=== PATIENT | male | born 1995 | race Caucasian/White ===

== ENCOUNTER 2020-12-05 10:16 | Inpatient (IN) | payer BC, OTHER, SELFPAY ==
[2020-12-05] MEDS ORDERED: Norepinephrine 8 MG/0.9% NS 250 ML ONE (10:20)
[2020-12-05] MEDS ORDERED: Lidocaine 1% (PF) 30 ML VIAL ONE (10:29)
[2020-12-05] MEDS ORDERED: EPINEPHrine 1 MG/10 ML Abboject SYRINGE ONE (10:34)
[2020-12-05] MEDS ORDERED: Iopamidol 370 76% 100 ML VIAL ONE (10:46)
[2020-12-05 10:51] LABS: Bacteria/HPF None Seen HPF (None Seen); Bilirubin Negative (Negative); Blood, Urine Negative (Negative); Clarity Clear (Clear); Glucose, Urine (Dipstick) Normal (Negative); Ketone, Urine Negative (Negative); Leukocyte Negative Leu/uL (Negative); Nitrite Negative (Negative); Protein, Urine (Dipstick) 70 mg/dL (Neg-Trace); RBC/HPF 0-3 HPF (0-3); Specific Gravity, Urine 1.035 (1.002-1.036); Squamous Epithelial None Seen HPF (0-3); Urobilinogen Normal mg/dL (Less than 2); WBC/HPF 0-3 HPF (0-3); pH, Urine 6.5 (5.0-9.0)
[2020-12-05] MEDS ORDERED: Fentanyl 100 MCG/2 ML VIAL ONE (10:54)
[2020-12-05 10:57] LABS: INR-International Normal Ratio 1.1; PTT 26.1 sec (22.9-36.1); Prothrombin Time 13.8 sec (12.0-14.7)
[2020-12-05 10:59] LABS: Amphetamine Not Detected (NotDetected); Barbiturates Screen Detected (NotDetected); Benzodiazepine Screen Not Detected (NotDetected); Cocaine Metabolite Screen Not Detected (NotDetected); Medtox Control Line Valid? VALID (VALID); Medtox Reader # READER 1; Methadone Not Detected (NotDetected); Methamphetamine Not Detected (NotDetected); Opiate Screen Not Detected (NotDetected); Oxycodone Screen Not Detected (NotDetected); Phencyclidine (PCP) Not Detected (NotDetected); THC/Cannabinoid Screen Detected (NotDetected); Tricyclic Screen Not Detected (NotDetected)
[2020-12-05 11:06] LABS: Hemoglobin 16.4 g/dL (14.0-18.0); Mean Corpuscular Hemoglobin 32.1 pg (27.0-31.0); Mean Platelet Volume 7.3 fL (7.4-10.4); Platelet Count 225 thou/uL (130-400); RBC Distribution Width 12.6 % (11.5-14.5)
[2020-12-05 11:08] LABS: Anion Gap 25 mmol/L (10-20); BUN (Urea Nitrogen) 15 mg/dL (8.9-20.6); Calc. Creatinine Clearance 0 mL/min (70-130); Carbon Dioxide 13 mmol/L (22-29); Chloride 102 mmol/L (98-107); Potassium 3.4 mmol/L (3.5-5.1); Sodium 137 mmol/L (136-145)
[2020-12-05 11:09] LABS: ALT (SGPT) 79 U/L (8-55); AST (SGOT) 94 U/L (5-34); Albumin 4.2 g/dL (3.5-5.0); Alkaline Phosphatase 78 U/L (40-110); Bilirubin, Total 1.2 mg/dL (0.2-1.2); Calcium 8.7 mg/dL (7.8-10.44); Globulin 3.1 g/dL (2.4-3.5); Glucose 235 mg/dL (70-105); Lipase 24 U/L (8-78); Protein, Total 7.3 g/dL (6.0-8.3)
[2020-12-05 11:12] LABS: Acetaminophen Less than 6.0 mcg/mL (10.0-30.0); Alcohol Less than 10 mg/dL (Less than 10); CK (CPK) 97 U/L (30-200); Salicylate Less than 8.0 mg/dL (15.0-30.0)
[2020-12-05 11:39] LABS: SARS-CoV-2 NAA Rapid Test Not Detected (NotDetected)
[2020-12-05] MEDS ORDERED: Amiodarone 150 MG/3 ML VIAL ONE (11:45)
[2020-12-05] MEDS ORDERED: Fentanyl CADD 100 ML ONE (11:55)
[2020-12-05 12:06] LABS: Band 1 % (5-11); Eosinophils 2 % (0-10); Lymphocytes 59 % (21-51); MDiff Complete? YES; Monocytes 1 % (0-10); Neutrophil 3 % (42-75); Platelet Morphology Comment Appears Adequate; Polychromasia SLIGHT = 2-3 cells (100X) (0-2/hpf); Reactive Lymphocytes 32 % (0-10)
[2020-12-05] MEDS ORDERED: Midazolam HCl 2 mg/2 ml Vial ONE (12:08)
[2020-12-05 12:31] LABS: Actual Bicarbonate (HCO3a) 12.5 mEq/L (22-28); Base Excess (BEa) -15.5 mEq/L (-2.0 to +3.0); CO2 Tension 36.8 mmHg (35.0-45.0); Calcium, Ionized (arterial) 1.05 mmol/L (1.12-1.30); Carboxyhemoglobin (COHb) 0.3 gm% (0.0-3.0); Hemoglobin (Hb) 15.4 g/dL (14.0-18.0); O2 Tension (PaO2), arterial 107.9 mmHg (80.0-100.0)
[2020-12-05 12:35] LABS: Puncture Site Arterial Line; pH, Arterial 7.15 (7.35-7.45)
[2020-12-05] MEDS ORDERED: Propofol 1,000 MG/100 ML VIAL IV ONE (12:35)
[2020-12-05] MEDS ORDERED: Nitroglycerin 0.4 MG TAB (25 Tab Bottle) SL PRN (13:07)
[2020-12-05] MEDS ORDERED: Lorazepam 2 MG/ML VIAL ONE (13:31)
[2020-12-05] MEDS ORDERED: Fentanyl BOLUS 250 ML IVPB PRN (13:45)
[2020-12-05] MEDS ORDERED: Propofol BOLUS 1,000 MG/100 ML VIAL IV PRN (13:45)
[2020-12-05] MEDS ORDERED: Lorazepam 2 MG/ML VIAL SLOW IVP SCH (13:45)
[2020-12-05] MEDS ORDERED: DISCONTINUE PREVIOUS NARCOTIC PAIN MEDICATIONS AND BENZODIAZEPINES FS SCH (13:45)
[2020-12-05] MEDS ORDERED: Morphine 2 MG/ML VIAL SLOW IVP PRN (13:45)
[2020-12-05 14:07] LABS: Lactic Acid 4.1 mmol/L (0.5-2.2)
[2020-12-05 14:28] LABS: Actual Bicarbonate (HCO3a) 17.8 mEq/L (22-28); Base Excess (BEa) -4.1 mEq/L (-2.0 to +3.0); Calcium, Ionized (arterial) 1.03 mmol/L (1.12-1.30); Carboxyhemoglobin (COHb) 0.2 gm% (0.0-3.0); Hemoglobin (Hb) 15.7 g/dL (14.0-18.0); O2 Tension (PaO2), arterial 168.4 mmHg (80.0-100.0); Potassium - ABG Lab 4.35 mmol/L (3.70-5.30); pH, Arterial 7.46 (7.35-7.45)
[2020-12-05 14:29] LABS: ALV-art Gradient 80.925 mmHg (0-20); CO2 Tension 25.5 mmHg (35.0-45.0); Puncture Site Arterial Line
[2020-12-05] MEDS: Heparin 5,000 UNITS/ML VIAL SC SCH ×2 (15:48→20:13)
[2020-12-05] MEDS: Lorazepam 2 MG/ML VIAL SLOW IVP PRN ×3 (15:48→22:22)
[2020-12-05] MEDS: Sodium Chloride 0.9% 1,000 ML IV SCH (15:49)
[2020-12-05] MEDS: Amiodarone 450 MG in Dextrose 5% in Water 250 ML IVPB SCH (15:55)
[2020-12-05] MEDS ORDERED: Potassium Chloride 40 MEQ in Premix Bag 1 BAG IVPB SCH (16:30)
[2020-12-05] MEDS ORDERED: Electrolyte Replacement Protocol FS PRN (16:30)
[2020-12-05] MEDS ORDERED: Calcium Gluconate 4.6 MEQ in Sodium Chloride 0.9% 100 ML IVPB SCH (16:45)
[2020-12-05] MEDS: DOBUTamine 500 mg/250 ml 500 MG in Premix Bag 1 BAG IVPB SCH (16:48)
[2020-12-05] MEDS: Norepinephrine 8 MG/0.9% NS 250 ML IVPB SCH (17:14)
[2020-12-05] MEDS: Vecuronium 10 MG VIAL IVP PRN ×3 (17:20→22:45)
[2020-12-05 19:38] LABS: #Lymphocytes 1.7 thou/uL (1.20-3.40); #Neutrophils 12.5 thou/uL (1.40-6.50); %Basophils 0.3 % (0.0-1.0); %Eosinophils 0.1 % (0.0-10.0); %Lymphocytes 10.8 % (21.0-51.0); %Monocytes 6.8 % (0.0-10.0); Hemoglobin 15.5 g/dL (14.0-18.0); Mean Corpuscular HGB CONC 34.2 g/dL (32.0-36.0); Mean Corpuscular Volume 96.5 fL (78.0-98.0); Mean Platelet Volume 6.8 fL (7.4-10.4); Platelet Count 203 thou/uL (130-400); RBC Distribution Width 12.8 % (11.5-14.5); White Blood Cell (WBC) Count 15.3 thou/uL (4.8-10.8)
[2020-12-05 19:45] LABS: INR-International Normal Ratio 1.1; PTT 25.2 sec (22.9-36.1); Prothrombin Time 14.6 sec (12.0-14.7)
[2020-12-05 19:54] LABS: Anion Gap 14 mmol/L (10-20); BUN (Urea Nitrogen) 14 mg/dL (8.9-20.6); Calc. Creatinine Clearance 175 mL/min (70-130); Calcium 8.4 mg/dL (7.8-10.44); Carbon Dioxide 16 mmol/L (22-29); Chloride 110 mmol/L (98-107); Glucose 104 mg/dL (70-105); Magnesium 1.9 mg/dL (1.6-2.6); Potassium 4.4 mmol/L (3.5-5.1); Sodium 136 mmol/L (136-145)
[2020-12-05 20:06] LABS: Troponin I 1.296 ng/mL (< 0.028)
[2020-12-05] MEDS ORDERED: Magnesium 2 GM/50 ML 2 GM in Premix Bag 1 BAG IVPB SCH (20:30)
[2020-12-05] MEDS: Propofol 1,000 MG/100 ML VIAL IV PRN (22:25)
[2020-12-06] MEDS: Vecuronium 10 MG VIAL IVP PRN ×5 (01:37→23:50)
[2020-12-06 01:57] LABS: #Basophils 0.1 thou/uL (0.0-0.2); #Lymphocytes 2.4 thou/uL (1.20-3.40); #Monocytes 0.9 thou/uL (0.11-0.59); %Basophils 0.5 % (0.0-1.0); %Eosinophils 0.1 % (0.0-10.0); %Lymphocytes 19.2 % (21.0-51.0); %Monocytes 7.4 % (0.0-10.0); %Neutrophils 72.7 % (42.0-75.0); Hemoglobin 15.3 g/dL (14.0-18.0); Mean Corpuscular HGB CONC 34.3 g/dL (32.0-36.0); Mean Corpuscular Hemoglobin 33.4 pg (27.0-31.0); Mean Corpuscular Volume 97.5 fL (78.0-98.0); Mean Platelet Volume 6.7 fL (7.4-10.4); Platelet Count 201 thou/uL (130-400); RBC Distribution Width 12.7 % (11.5-14.5); Red Blood Cell (RBC) Count 4.57 mill/uL (4.70-6.10); White Blood Cell (WBC) Count 12.4 thou/uL (4.8-10.8)
[2020-12-06 02:18] LABS: Anion Gap 15 mmol/L (10-20); BUN (Urea Nitrogen) 12 mg/dL (8.9-20.6); Calc. Creatinine Clearance 192 mL/min (70-130); Calcium 8.3 mg/dL (7.8-10.44); Carbon Dioxide 18 mmol/L (22-29); Chloride 107 mmol/L (98-107); Glucose 105 mg/dL (70-105); Magnesium 2.1 mg/dL (1.6-2.6); Phosphorus 2.9 mg/dL (2.3-4.7); Potassium 3.9 mmol/L (3.5-5.1); Sodium 136 mmol/L (136-145)
[2020-12-06 02:20] LABS: INR-International Normal Ratio 1.1; Prothrombin Time 13.9 sec (12.0-14.7)
[2020-12-06 02:37] LABS: Troponin I 0.642 ng/mL (< 0.028)
[2020-12-06] MEDS ORDERED: Fentanyl CADD 100 ML ONE ×2 (02:49→22:47)
[2020-12-06] MEDS: Fentanyl CADD 100 ML IV SCH ×2 (02:54→22:51)
[2020-12-06] MEDS: Propofol 1,000 MG/100 ML VIAL IV PRN ×4 (02:55→21:16)
[2020-12-06 03:51] LABS: #Lymphocytes 2.3 thou/uL (1.20-3.40); #Monocytes 0.5 thou/uL (0.11-0.59); #Neutrophils 7.3 thou/uL (1.40-6.50); %Basophils 0.3 % (0.0-1.0); %Eosinophils 0.4 % (0.0-10.0); %Lymphocytes 22.8 % (21.0-51.0); %Monocytes 4.7 % (0.0-10.0); %Neutrophils 71.8 % (42.0-75.0); Hemoglobin 15.1 g/dL (14.0-18.0); Mean Corpuscular Volume 97.1 fL (78.0-98.0); Mean Platelet Volume 6.8 fL (7.4-10.4); Platelet Count 186 thou/uL (130-400); RBC Distribution Width 12.7 % (11.5-14.5); Red Blood Cell (RBC) Count 4.45 mill/uL (4.70-6.10); White Blood Cell (WBC) Count 10.1 thou/uL (4.8-10.8)
[2020-12-06 04:05] LABS: Lactic Acid 1.5 mmol/L (0.5-2.2)
[2020-12-06 04:10] LABS: ALT (SGPT) 66 U/L (8-55); AST (SGOT) 81 U/L (5-34); Albumin 3.7 g/dL (3.5-5.0); Alkaline Phosphatase 63 U/L (40-110); Anion Gap 15 mmol/L (10-20); BUN (Urea Nitrogen) 12 mg/dL (8.9-20.6); Bilirubin, Total 1.9 mg/dL (0.2-1.2); Calc. Creatinine Clearance 201 mL/min (70-130); Calcium 8.4 mg/dL (7.8-10.44); Carbon Dioxide 18 mmol/L (22-29); Cardiac Risk 2.7 (Less than 4.5); Chloride 107 mmol/L (98-107); Cholesterol 123 mg/dl (< 200 Desired); Globulin 2.5 g/dL (2.4-3.5); Glucose 110 mg/dL (70-105); HDL Cholesterol 45 mg/dL (>60 Neg Risk); LDL Cholesterol, Calculated 58 mg/dL; Magnesium 2.1 mg/dL (1.6-2.6); Potassium 3.9 mmol/L (3.5-5.1); Protein, Total 6.2 g/dL (6.0-8.3); Sodium 136 mmol/L (136-145); Triglycerides 99 mg/dL (Less than 150)
[2020-12-06] MEDS: Amiodarone 450 MG in Dextrose 5% in Water 250 ML IVPB SCH ×2 (04:46→20:00)
[2020-12-06] MEDS: Lorazepam 2 MG/ML VIAL SLOW IVP PRN ×2 (05:19→21:35)
[2020-12-06 07:01] LABS: Actual Bicarbonate (HCO3a) 17.2 mEq/L (22-28); Base Excess (BEa) -4.8 mEq/L (-2.0 to +3.0); Carboxyhemoglobin (COHb) 0.6 gm% (0.0-3.0); Hemoglobin (Hb) 15.3 g/dL (14.0-18.0); O2 Tension (PaO2), arterial 61.3 mmHg (80.0-100.0); pH, Arterial 7.45 (7.35-7.45)
[2020-12-06 07:03] LABS: CO2 Tension 25.2 mmHg (35.0-45.0)
[2020-12-06 07:04] LABS: Puncture Site Arterial Line
[2020-12-06] MEDS: Sodium Chloride 0.9% 1,000 ML IV SCH (07:50)
[2020-12-06 07:52] LABS: #Basophils 0.1 thou/uL (0.0-0.2); #Lymphocytes 1.4 thou/uL (1.20-3.40); #Monocytes 0.3 thou/uL (0.11-0.59); #Neutrophils 7.6 thou/uL (1.40-6.50); %Basophils 0.7 % (0.0-1.0); %Eosinophils 0.3 % (0.0-10.0); %Lymphocytes 15.2 % (21.0-51.0); %Monocytes 2.9 % (0.0-10.0); %Neutrophils 80.9 % (42.0-75.0); Hemoglobin 15.2 g/dL (14.0-18.0); Mean Corpuscular HGB CONC 32.8 g/dL (32.0-36.0); Mean Corpuscular Hemoglobin 32.5 pg (27.0-31.0); Mean Platelet Volume 6.8 fL (7.4-10.4); Platelet Count 188 thou/uL (130-400); RBC Distribution Width 12.8 % (11.5-14.5); Red Blood Cell (RBC) Count 4.66 mill/uL (4.70-6.10); White Blood Cell (WBC) Count 9.5 thou/uL (4.8-10.8)
[2020-12-06] MEDS: Potassium Phosphate 15 MMOL in Sodium Chloride 0.9% 100 ML IVPB SCH ×2 (08:09→08:57)
[2020-12-06 08:16] LABS: Anion Gap 14 mmol/L (10-20); BUN (Urea Nitrogen) 11 mg/dL (8.9-20.6); Calc. Creatinine Clearance 197 mL/min (70-130); Calcium 8.4 mg/dL (7.8-10.44); Carbon Dioxide 18 mmol/L (22-29); Chloride 109 mmol/L (98-107); Glucose 108 mg/dL (70-105); Magnesium 1.8 mg/dL (1.6-2.6); Phosphorus 2.1 mg/dL (2.3-4.7); Potassium 3.5 mmol/L (3.5-5.1); Sodium 137 mmol/L (136-145)
[2020-12-06 08:22] LABS: Critical Call Chem Troponin I RESULT DECREASING; Troponin I 0.307 ng/mL (< 0.028)
[2020-12-06 08:30] LABS: INR-International Normal Ratio 1.1; PTT 28.7 sec (22.9-36.1); Prothrombin Time 14.3 sec (12.0-14.7)
[2020-12-06] MEDS ORDERED: Magnesium 2 GM/50 ML 2 GM in Premix Bag 1 BAG IVPB SCH ×2 (08:45→20:45)
[2020-12-06] MEDS: Heparin 5,000 UNITS/ML VIAL SC SCH ×3 (08:57→20:39)
[2020-12-06] MEDS: Pantoprazole 40 MG VIAL IVP SCH (09:16)
[2020-12-06] MEDS: Potassium Chloride 20 MEQ in Premix Bag 1 BAG IVPB SCH ×2 (09:51→12:06)
[2020-12-06] MEDS ORDERED: Sodium Bicarb 50 MEQ/50 ML Abboject 8.4% SYRINGE IVP SCH (10:00)
[2020-12-06] MEDS ORDERED: Albuterol Sulfate 1.25 MG/3 ML NEB NEB PRN (11:34)
[2020-12-06 11:43] LABS: Actual Bicarbonate (HCO3a) 18.7 mEq/L (22-28); Analyzer IN Cardio ER; Base Excess (BEa) -5.9 mEq/L (-2.0 to +3.0); CO2 Tension 34.7 mmHg (35.0-45.0); Calcium, Ionized (arterial) 1.17 mmol/L (1.12-1.30); Carboxyhemoglobin (COHb) 0.3 gm% (0.0-3.0); Hemoglobin (Hb) 16.5 g/dL (14.0-18.0); O2 Tension (PaO2), arterial 45.8 mmHg (80.0-100.0); Potassium - ABG Lab 3.27 mmol/L (3.70-5.30); pH, Arterial 7.35 (7.35-7.45)
[2020-12-06 11:45] LABS: Puncture Site Arterial Line
[2020-12-06 11:46] LABS: ALV-art Gradient 338.625 mmHg (0-20)
[2020-12-06] MEDS ORDERED: Furosemide 20 MG/2 ML VIAL SLOW IVP SCH (12:00)
[2020-12-06 13:02] LABS: Hemoglobin 15.9 g/dL (14.0-18.0); INR-International Normal Ratio 1.1; Mean Corpuscular HGB CONC 33.3 g/dL (32.0-36.0); Mean Corpuscular Hemoglobin 32.7 pg (27.0-31.0); Mean Corpuscular Volume 98.1 fL (78.0-98.0); Mean Platelet Volume 7.2 fL (7.4-10.4); PTT 28.7 sec (22.9-36.1); Platelet Count 180 thou/uL (130-400); Prothrombin Time 14.1 sec (12.0-14.7); RBC Distribution Width 13.1 % (11.5-14.5); Red Blood Cell (RBC) Count 4.86 mill/uL (4.70-6.10); White Blood Cell (WBC) Count 6.8 thou/uL (4.8-10.8)
[2020-12-06 13:36] LABS: Anion Gap 16 mmol/L (10-20); BUN (Urea Nitrogen) 10 mg/dL (8.9-20.6); Calc. Creatinine Clearance 210 mL/min (70-130); Calcium 8.8 mg/dL (7.8-10.44); Carbon Dioxide 18 mmol/L (22-29); Chloride 108 mmol/L (98-107); Glucose 127 mg/dL (70-105); Magnesium 2.3 mg/dL (1.6-2.6); Phosphorus 1.4 mg/dL (2.3-4.7); Potassium 3.7 mmol/L (3.5-5.1); Sodium 138 mmol/L (136-145)
[2020-12-06 13:44] LABS: Band 18 % (5-11); Lymphocytes 12 % (21-51); MDiff Complete? YES; Metamyelocyte 4 % (0-0); Monocytes 3 % (0-10); Neutrophil 63 % (42-75); Platelet Morphology Comment Appears Adequate; RBC Morphology Normal
[2020-12-06] MEDS ORDERED: Potassium Phosphate 30 MMOL in Sodium Chloride 0.9% 250 ML 250 ML IVPB SCH (13:45)
[2020-12-06] MEDS: DOBUTamine 500 mg/250 ml 500 MG in Premix Bag 1 BAG IVPB SCH (14:26)
[2020-12-06 14:50] VITALS: BMI 31.4
[2020-12-06 19:02] LABS: Hemoglobin 15.8 g/dL (14.0-18.0); Mean Corpuscular HGB CONC 33.4 g/dL (32.0-36.0); Mean Corpuscular Hemoglobin 33.1 pg (27.0-31.0); Mean Corpuscular Volume 99.2 fL (78.0-98.0); Mean Platelet Volume 7.1 fL (7.4-10.4); Platelet Count 195 thou/uL (130-400); RBC Distribution Width 13.1 % (11.5-14.5); Red Blood Cell (RBC) Count 4.77 mill/uL (4.70-6.10); White Blood Cell (WBC) Count 8.6 thou/uL (4.8-10.8)
[2020-12-06 19:08] LABS: INR-International Normal Ratio 1.2; PTT 28.9 sec (22.9-36.1); Prothrombin Time 14.9 sec (12.0-14.7)
[2020-12-06 19:19] LABS: Anion Gap 16 mmol/L (10-20); BUN (Urea Nitrogen) 11 mg/dL (8.9-20.6); Calc. Creatinine Clearance 176 mL/min (70-130); Calcium 8.5 mg/dL (7.8-10.44); Carbon Dioxide 19 mmol/L (22-29); Chloride 106 mmol/L (98-107); Glucose 144 mg/dL (70-105); Magnesium 1.8 mg/dL (1.6-2.6); Phosphorus 2.9 mg/dL (2.3-4.7); Potassium 3.7 mmol/L (3.5-5.1); Sodium 137 mmol/L (136-145)
[2020-12-06 19:21] LABS: Band 21 % (5-11); Lymphocytes 8 % (21-51); MDiff Complete? YES; Metamyelocyte 1 % (0-0); Monocytes 9 % (0-10); Neutrophil 60 % (42-75); Platelet Morphology Comment Appears Adequate; RBC Morphology Normal; Reactive Lymphocytes 1 % (0-10)
[2020-12-06 19:25] LABS: Troponin I 0.079 ng/mL (< 0.028)
[2020-12-06 20:45] LABS: Actual Bicarbonate (HCO3a) 18.8 mEq/L (22-28); Base Excess (BEa) -8.7 mEq/L (-2.0 to +3.0); Calcium, Ionized (arterial) 1.18 mmol/L (1.12-1.30); Carboxyhemoglobin (COHb) 0.3 gm% (0.0-3.0); Hemoglobin (Hb) 16.4 g/dL (14.0-18.0); Potassium - ABG Lab 4.26 mmol/L (3.70-5.30)
[2020-12-06] MEDS ORDERED: Potassium Chloride 40 MEQ in Premix Bag 1 BAG IVPB SCH (20:45)
[2020-12-06] MEDS ORDERED: Albumin 25% 25 GM/100 ML BOT IVPB SCH (20:45)
[2020-12-06 20:48] LABS: pH, Arterial 7.23 (7.35-7.45)
[2020-12-06 20:49] LABS: Puncture Site Arterial Line
[2020-12-07] MEDS ORDERED: Furosemide 40 MG/4 ML VIAL SLOW IVP SCH (01:30)
[2020-12-07] MEDS: Propofol 1,000 MG/100 ML VIAL IV PRN ×2 (02:36→07:27)
[2020-12-07] MEDS: Norepinephrine 8 MG/0.9% NS 250 ML IVPB SCH ×3 (02:59→13:03)
[2020-12-07] MEDS: Acetaminophen 650 MG/20.3 ML UDCUP PER TUBE PRN ×2 (04:16→12:14)
[2020-12-07 05:21] LABS: Phosphorus 4.7 mg/dL (2.3-4.7)
[2020-12-07 05:45] LABS: ALT (SGPT) 50 U/L (8-55); AST (SGOT) 55 U/L (5-34); Albumin 3.8 g/dL (3.5-5.0); Alkaline Phosphatase 58 U/L (40-110); Anion Gap 17 mmol/L (10-20); BUN (Urea Nitrogen) 15 mg/dL (8.9-20.6); Bilirubin, Total 2.8 mg/dL (0.2-1.2); Calc. Creatinine Clearance 127 mL/min (70-130); Calcium 8.5 mg/dL (7.8-10.44); Carbon Dioxide 16 mmol/L (22-29); Chloride 108 mmol/L (98-107); Globulin 2.5 g/dL (2.4-3.5); Glucose 104 mg/dL (70-105); Potassium 6.3 mmol/L (3.5-5.1); Protein, Total 6.3 g/dL (6.0-8.3); Sodium 135 mmol/L (136-145)
[2020-12-07] MEDS ORDERED: Calcium Gluc 4.6 MEQ/10 ML (100 MG/ML) SLOW IVP SCH (06:15)
[2020-12-07 06:24] LABS: Anion Gap 17 mmol/L (10-20); BUN (Urea Nitrogen) 16 mg/dL (8.9-20.6); Calc. Creatinine Clearance 108 mL/min (70-130); Calcium 8.1 mg/dL (7.8-10.44); Carbon Dioxide 16 mmol/L (22-29); Chloride 108 mmol/L (98-107); Glucose 104 mg/dL (70-105); Sodium 134 mmol/L (136-145)
[2020-12-07 06:30] LABS: Potassium 6.7 mmol/L (3.5-5.1)
[2020-12-07] MEDS ORDERED: Magnesium 2 GM/50 ML 2 GM in Premix Bag 1 BAG IVPB SCH (06:30)
[2020-12-07] MEDS ORDERED: Insulin Regular 300 UNITS/3 ML VIAL IVP SCH (06:45)
[2020-12-07] MEDS ORDERED: Dextrose 50% Abboject 50 ML SYRINGE SLOW IVP SCH (06:45)
[2020-12-07] MEDS: Vecuronium 10 MG VIAL IVP PRN (07:27)
[2020-12-07 07:33] LABS: Actual Bicarbonate (HCO3a) 17.2 mEq/L (22-28); Base Excess (BEa) -8.9 mEq/L (-2.0 to +3.0); CO2 Tension 37.9 mmHg (35.0-45.0); Calcium, Ionized (arterial) 1.14 mmol/L (1.12-1.30); Carboxyhemoglobin (COHb) 0.4 gm% (0.0-3.0); Hemoglobin (Hb) 14.7 g/dL (14.0-18.0); O2 Tension (PaO2), arterial 67.4 mmHg (80.0-100.0); Potassium - ABG Lab 5.36 mmol/L (3.70-5.30); pH, Arterial 7.27 (7.35-7.45)
[2020-12-07 07:34] LABS: ALV-art Gradient 384.325 mmHg (0-20); Puncture Site Arterial Line
[2020-12-07] MEDS: Sodium Bicarbonate 150 MEQ in Dextrose 5% in Water 1,000 ML IV SCH ×2 (07:59→08:30)
[2020-12-07] MEDS: Vasopressin 20 UNIT, Admixture Fee 1 EACH in Sodium Chloride 0.9% 50 ML IV SCH ×2 (07:59→14:05)
[2020-12-07] MEDS ORDERED: Sodium Bicarbonate 150 MEQ in Dextrose 5% in Water 1,000 ML IV SCH (09:00)
[2020-12-07] MEDS: Pantoprazole 40 MG VIAL IVP SCH (09:57)
[2020-12-07] MEDS: Heparin 5,000 UNITS/ML VIAL SC SCH (09:57)
[2020-12-07 10:06] LABS: Hemoglobin 14.8 g/dL (14.0-18.0); Mean Corpuscular HGB CONC 32.2 g/dL (32.0-36.0); Mean Corpuscular Hemoglobin 32.2 pg (27.0-31.0); Mean Platelet Volume 7.2 fL (7.4-10.4); Platelet Count 186 thou/uL (130-400); RBC Distribution Width 13.1 % (11.5-14.5); Red Blood Cell (RBC) Count 4.58 mill/uL (4.70-6.10); White Blood Cell (WBC) Count 3.6 thou/uL (4.8-10.8)
[2020-12-07] MEDS: DOBUTamine 500 mg/250 ml 500 MG in Premix Bag 1 BAG IVPB SCH ×2 (10:12→14:05)
[2020-12-07 10:22] LABS: Lactic Acid 3.8 mmol/L (0.5-2.2)
[2020-12-07 11:17] LABS: Band 60 % (5-11); Lymphocytes 11 % (21-51); MDiff Complete? YES; Metamyelocyte 11 % (0-0); Monocytes 2 % (0-10); Neutrophil 16 % (42-75); Platelet Morphology Comment Appears Adequate; Polychromasia SLIGHT = 2-3 cells (100X) (0-2/hpf); Vacuoles SLIGHT
[2020-12-07] MEDS: Amiodarone 450 MG in Dextrose 5% in Water 250 ML IVPB SCH (11:24)
[2020-12-07] MEDS ORDERED: Albumin 25% 25 GM/100 ML BOT IVPB SCH (11:45)
[2020-12-07 12:29] LABS: Anion Gap 15 mmol/L (10-20); BUN (Urea Nitrogen) 16 mg/dL (8.9-20.6); Calc. Creatinine Clearance 114 mL/min (70-130); Calcium 8.2 mg/dL (7.8-10.44); Carbon Dioxide 21 mmol/L (22-29); Chloride 105 mmol/L (98-107); Glucose 137 mg/dL (70-105); Potassium 5.9 mmol/L (3.5-5.1); Sodium 135 mmol/L (136-145)
[2020-12-07] MEDS ORDERED: Calcium Gluconate 4.6 MEQ in Sodium Chloride 0.9% 100 ML IVPB SCH (12:44)
[2020-12-07] MEDS ORDERED: Vecuronium 10 MG VIAL IV PRN (12:54)
[2020-12-07 14:37] VITALS: BP 115/60
[2020-12-07 15:11] VITALS: TEMP 101.1
[2020-12-07] MEDS ORDERED: Calcium Chloride 1 GM/10 ML Abboject SYRINGE ONE (15:18)
[2020-12-07] MEDS ORDERED: Atropine Sulfate 1 mg/10 ml Syringe ONE (15:18)
[2020-12-07] MEDS ORDERED: EPINEPHrine 1 MG/10 ML Abboject SYRINGE ONE ×3 (15:18→15:34)
[2020-12-07] MEDS ORDERED: Sodium Bicarb 50 MEQ/50 ML Abboject 8.4% SYRINGE ONE (15:18)
[2020-12-07 15:26] LABS: Actual Bicarbonate (HCO3a) 17.7 mEq/L (22-28); Base Excess (BEa) -16.4 mEq/L (-2.0 to +3.0); Calcium, Ionized (arterial) 1.29 mmol/L (1.12-1.30); Carboxyhemoglobin (COHb) 0.3 gm% (0.0-3.0); Hemoglobin (Hb) 14.6 g/dL (14.0-18.0)
[2020-12-07 15:36] LABS: pH, Arterial 6.93 (7.35-7.45)
[2020-12-07 15:37] LABS: CO2 Tension 87.1 mmHg (35.0-45.0); O2 Tension (PaO2), arterial 17.2 mmHg (80.0-100.0)
[2020-12-07 15:38] LABS: ALV-art Gradient 586.925 mmHg (0-20); Puncture Site Arterial Line
[2020-12-07] MEDS ORDERED: EPINEPHrine 4 MG in Dextrose 5% in Water 250 ML IV SCH (15:45)
== END 2020-12-07 15:50 | disposition expired ==
LOC: ERS 10:16 → CCL 10:51 → CCU 11:19
PROVIDERS: ADMIT Internal Medicine Cardiovascular Disease; ATTEND Internal Medicine Cardiovascular Disease
PROC: 4A023N7 Measurement of Cardiac Sampling and Pressure, Left Heart, Percutaneous Approach (ICD-10-PCS; principal; 2020-12-05)
PROC: 5A1945Z Respiratory Ventilation, 24-96 Consecutive Hours (ICD-10-PCS; 2020-12-05)
PROC: 3E033XZ Introduction of Vasopressor into Peripheral Vein, Percutaneous Approach (ICD-10-PCS; 2020-12-05)
PROC: B2111ZZ Fluoroscopy of Multiple Coronary Arteries using Low Osmolar Contrast (ICD-10-PCS; 2020-12-05)
PROC: B2151ZZ Fluoroscopy of Left Heart using Low Osmolar Contrast (ICD-10-PCS; 2020-12-05)
PROC: 5A2204Z Restoration of Cardiac Rhythm, Single (ICD-10-PCS; 2020-12-05)
PROC: 5A12012 Performance of Cardiac Output, Single, Manual (ICD-10-PCS; 2020-12-05)
PROC: 0D9670Z Drainage of Stomach with Drainage Device, Via Natural or Artificial Opening (ICD-10-PCS; 2020-12-05)
PROC: 3E043XZ Introduction of Vasopressor into Central Vein, Percutaneous Approach (ICD-10-PCS; 2020-12-05)
PROC: 06HY33Z Insertion of Infusion Device into Lower Vein, Percutaneous Approach (ICD-10-PCS; 2020-12-05)
PROC: 5A12012 Performance of Cardiac Output, Single, Manual (ICD-10-PCS; 2020-12-07)
DX: Q22.5 Ebstein's anomaly (principal); N17.0 Acute kidney failure with tubular necrosis; I21.A1 Myocardial infarction type 2; J96.01 Acute respiratory failure with hypoxia; Q21.1 Atrial septal defect; E87.2 Acidosis; I48.19 Other persistent atrial fibrillation; I48.92 Unspecified atrial flutter; I47.2 Ventricular tachycardia; G93.1 Anoxic brain damage, not elsewhere classified; Z20.822 Contact with and (suspected) exposure to COVID-19; I46.2 Cardiac arrest due to underlying cardiac condition; I48.91 Unspecified atrial fibrillation; I45.10 Unspecified right bundle-branch block; F17.290 Nicotine dependence, other tobacco product, uncomplicated; E66.9 Obesity, unspecified; I45.81 Long QT syndrome; M10.9 Gout, unspecified; I50.811 Acute right heart failure; I25.10 Atherosclerotic heart disease of native coronary artery without angina pectoris; E87.5 Hyperkalemia; R57.0 Cardiogenic shock; R56.9 Unspecified convulsions; Z98.1 Arthrodesis status; Z88.8 Allergy status to other drugs, medicaments and biological substances; Z68.31 Body mass index [BMI] 31.0-31.9, adult; Z82.49 Family history of ischemic heart disease and other diseases of the circulatory system; Z82.69 Family history of other diseases of the musculoskeletal system and connective tissue; Z79.899 Other long term (current) drug therapy; Z78.1 Physical restraint status; E83.39 Other disorders of phosphorus metabolism
CPT/HCPCS: 0240U; 36415; 36416; 51702; 71045; 80053; 80061; 80306; 80307; 81003; 81015; 82550; 82805; 83605; 83690; 83735; 83880; 84100; 84484; 85025; 85060; 85610; 85730; 87086; 92960; 93005; 93010; 93306; 93458; 94002; 94003; 94640; 94760; 95816; 95819; 95957; 96374; 96375; C1751; C9113; J0171; J0282; J0461; J1250; J1644; J1815; J1940; J2001; J2060; J2250; J2704; J3010; J3475; J3480; J3490; J7050; J7070; P9047; Q9967